=== PATIENT | male | born 1980 | race Caucasian/White ===

== ENCOUNTER 2016-12-17 10:01 | Emergency (ER) | payer SELFPAY ==
[2016-12-17 10:21] VITALS: BP 150/100
--- NOTE | 2016-12-17 10:23 | Emergency Department Report ---
Chief Complaint: Chest Pain Stated Complaint: CHEST PAIN Time Seen by Provider: 12/17/16 10:19 - HPI History of Present Illness: PT c/o chest pain x 1 hour. PT states he was at work when his cp started. - ROS Review of Systems: + left arm tightness + chest pain - sob - diaphoresis - Exam Physical Exam: PT alert and appropriate steady gait chest wall not ttp MSE screening note: Focused history and physical exam performed. Due to findings the following was ordered: ekg, labs xr ED Disposition for MSE Condition: Stable
[2016-12-17 10:59] LABS: Basophils % (Auto) 0.8 % (0.0-1.8); Eosinophils % (Auto) 1.6 % (0.0-4.3); Hematocrit 43.2 % (35.5-45.6); Hemoglobin 15.1 gm/dl (11.8-15.2); Mean Corpuscular HGB Conc 35 % (32-34); Mean Corpuscular Hemoglobin 33 pg (28-32); Mean Corpuscular Volume 95 fl (84-94); Platelet Count 183 K/mm3 (140-440); Red Blood Count 4.55 M/mm3 (3.65-5.03); Red Cell Distribution Width 12.8 % (13.2-15.2); White Blood Count 8.8 K/mm3 (4.5-11.0)
--- NOTE | 2016-12-17 11:04 | XRay Report ---
ROUTINE CHEST, TWO VIEWS: HISTORY: chest pain. The trachea, heart, mediastinal contour, lung yi and bony thorax are unremarkable. IMPRESSION: Unremarkable chest x-ray.
[2016-12-17 11:09] LABS: INR 0.9 (0.87-1.13)
[2016-12-17 11:10] LABS: Partial Thromboplastin Time 29.9 Sec. (24.2-36.6)
[2016-12-17 11:22] LABS: Alanine Aminotransferase 52 units/L (7-56); Albumin 3.8 g/dL (3.9-5); Albumin/Globulin Ratio 1.4 %; Alkaline Phosphatase 37 units/L (35-129); Anion Gap 18 mmol/L; BUN/Creatinine Ratio 11.25; Blood Urea Nitrogen 9 mg/dL (9-20); Calcium 8.7 mg/dL (8.4-10.2); Carbon Dioxide 24 mmol/L (22-30); Chloride 104.7 mmol/L (98-107); Creatine Kinase 803 units/L (55-170); Glucose 90 mg/dL (75-100); Potassium 4.3 mmol/L (3.6-5.0); Sodium 142 mmol/L (137-145); Total Protein 6.5 g/dL (6.3-8.2)
== END 2016-12-17 12:00 | disposition left against medical advice (07) ==
LOC: ED 10:01
DX: R07.9 Chest pain, unspecified (principal); Z53.21 Procedure and treatment not carried out due to patient leaving prior to being seen by health care provider
CPT/HCPCS: 36415; 71020; 80053; 82550; 84484; 85025; 85610; 85730; 93005; 93010